=== PATIENT | female | born 1960 | race Caucasian/White ===

== ENCOUNTER 2023-01-12 14:15 | Outpatient (CLI) | payer MEDICAID, SELFPAY ==
--- NOTE | ~2023-01-12 | XR_ITS ---
EXAMINATION: XR hand BI arthritis min 3V DATE: 01/12/2023 14:54 INDICATION: Systemic lupus erythematosus. Encounter for screening for other viral diseases. TECHNIQUE: 4 views of right hand and 4 views of left hand on 7 radiographs were obtained. COMPARISON: None. FINDINGS: RIGHT HAND: There is radial subluxation of second and third distal phalanges respect to the metacarpa ls. No fracture. There is mild osteoarthritis of triscaphe joint and first carpometacarpal joint and some of the metacarpophalangeal joints and interphalangeal joints. There is severe osteoarthritis of first interphalangeal joint and second, third, and fifth distal interphalangeal joints. There is mode rate osteoarthritis of fourth and fifth proximal interphalangeal joints and fourth distal interphalan geal joint. LEFT HAND: There is ulnar subluxation of second distal phalanx with respect to the middle phalanx. No fracture. There is mild osteoarthritis of first carpometacarpal joint and some of the metacarpophala ngeal joints and interphalangeal joints. There is moderate osteoarthritis of fourth proximal interpha langeal joint and fifth distal interphalangeal joint and severe osteoarthritis of second and third di stal interphalangeal joints. IMPRESSION: 1. Polyarticular osteoarthritis. Reviewed, dictated and finalized at location E.
--- NOTE | ~2023-01-12 | XR_ITS ---
EXAMINATION: XR foot LT standing 2V DATE: 01/12/2023 14:54 INDICATION: Systemic lupus erythematosus. Encounter for screening for other viral diseases. TECHNIQUE: 2 views of left foot standing were obtained. COMPARISON: None. FINDINGS: Bone alignment is normal. No fracture. There is plate and screw fixation of distal fibula. There is mild osteoarthritis of talonavicular joint. There are enthesophytes at the posterior and sadia ntar aspects of calcaneal tuberosity. IMPRESSION: 1. Mild osteoarthritis of talonavicular joint. Reviewed, dictated and finalized at location E.
--- NOTE | ~2023-01-12 | XR_ITS ---
EXAMINATION: XR foot RT standing 2V DATE: 01/12/2023 14:54 INDICATION: Systemic lupus erythematosus. Encounter for screening for other viral diseases. TECHNIQUE: 2 views of right foot standing were obtained. COMPARISON: None. FINDINGS: There is mild hallux valgus. No fracture. There is mild osteoarthritis of talonavicular geovany nt. There is severe arthritis of first metatarsophalangeal joint with joint space loss and erosions o f bone and flaring of the base of the first distal phalanx. There is volume loss of head of second pr oximal phalanx, which may be from prior trauma or surgery. There is mild osteoarthritis of some of th e interphalangeal joints. There are enthesophytes at the posterior and plantar aspects of calcaneal t uberosity. IMPRESSION: 1. Severe arthritis of first metatarsophalangeal joint. The differential diagnosis includes septic ar thritis and gout. 2. Mild polyarticular osteoarthritis. Reviewed, dictated and finalized at location E. IMPRESSION: 1. Severe arthritis of first metatarsophalangeal joint. The differential diagno sis includes septic arthritis and gout. 2. Mild polyarticular osteoarthritis.
--- NOTE | ~2023-01-12 | XR_ITS ---
XR chest 2V DATE: 01/12/2023 14:54 INDICATION: Systemic lupus erythematosus TECHNIQUE: PA and lateral views COMPARISON: None FINDINGS: Normal heart size. No hilar or mediastinal enlargement. No pulmonary infiltrate or consolid ation, pleural effusion or pulmonary vascular congestion or pneumothorax. Or mild degenerative spurri ng of the thoracic spine. IMPRESSION: No active cardiopulmonary disease Reviewed, dictated and finalized at location L.
[2023-01-12 16:07] LABS: Hematocrit 43.7 % (37.0-47.0); Hemoglobin 14.5 g/dL (12.0-15.0); Mean Corpuscular HGB Conc 33.2 g/dl (32-36); Mean Corpuscular Hemoglobin 30.9 pg (26-34); Mean Platelet Volume 10.3 fl (7.4-10.4); Platelet Count Result 346 k/mm3 (150-375); Red Cell Distribution Width 12.3 % (11.5-14.5); White Blood Count 7.7 K/mm3 (4.5-10.0)
[2023-01-12 16:20] LABS: Alanine Aminotransferase 31 U/L (6-35); Albumin Level 4.6 g/dL (3.5-5.1); Alkaline Phosphatase 84 U/L (38-126); Anion Gap 7 mmol/L (8-16); Aspartate Amino Transferase 27 U/L (14-36); Bilirubin,Total 0.5 mg/dL (0.2-1.3); Blood Urea Nitrogen 14 mg/dL (7-17); CRP 0.5 mg/dL (<1.0); Calcium 9.2 mg/dL (8.4-10.2); Carbon Dioxide 28 mmol/L (22-30); Chloride 102 mmol/L (98-107); Estimated Glomerular Filt Rate > 60; Glucose 103 mg/dL (65-110); Potassium 3.7 mmol/L (3.4-5.0); Sodium 137 mmol/L (137-145); Uric Acid 5.1 mg/dL (2.5-7.5)
[2023-01-12 16:55] LABS: Erythrocyte Sedimentation Rate 17 mm/hr (0-20)
[2023-01-12 17:46] LABS: Vitamin D 25 Hydroxy 22.6 ng/mL
[2023-01-12 18:01] LABS: Hepatitis B Surface Antigen Negative (Negative)
[2023-01-12 18:19] LABS: Hepatitis B Surface Anti Res Negative; Hepatitis C Virus Antibody Negative (Negative)
[2023-01-13 05:42] LABS: Rheumatoid Factor < 12.0 IU/ML (<12)
[2023-01-17 21:30] LABS: Anti Cyclic Citrullinated Pept <16 Units (<20)
[2023-01-18 21:16] LABS: Hexagonal Phase Confirm Negative (Negative); Lupus dRVVT Screen 37 sec (<=45); PTT-LA Screen 41 sec (<=40)
== END 2023-01-12 14:16 | disposition home or self-care (01) ==
LOC: ANHIMG 14:23
PROVIDERS: PCP Internal Medicine; Visit Provider Internal Medicine
DX: F17.200 Nicotine dependence, unspecified, uncomplicated (principal); M32.9 Systemic lupus erythematosus, unspecified; Z11.59 Encounter for screening for other viral diseases; M06.041 Rheumatoid arthritis without rheumatoid factor, right hand; M06.042 Rheumatoid arthritis without rheumatoid factor, left hand; M19.071 Primary osteoarthritis, right ankle and foot; M19.072 Primary osteoarthritis, left ankle and foot; M19.041 Primary osteoarthritis, right hand; M19.042 Primary osteoarthritis, left hand
CPT/HCPCS: 36415; 71046; 73130; 73620; 80053; 82306; 84550; 85027; 85598; 85613; 85652; 85730; 86140; 86200; 86430; 86706; 86803; 87340